=== PATIENT | female | born 1955 ===

== ENCOUNTER 2023-02-01 16:33 | Emergency (ER) | payer SELFPAY ==
[2023-02-01] MEDS ORDERED: Dexamethasone 4 MG/ML SDV IM ONE (16:56)
[2023-02-01] MEDS ORDERED: Orphenadrine 60 MG/2 ML Inj IM ONE (16:56)
== END 2023-02-01 17:39 | disposition home or self-care (01) ==
LOC: DL.ED 16:33
DX: M54.41 Lumbago with sciatica, right side (principal); Z72.0 Tobacco use
CPT/HCPCS: 72100; 96372; 99283; J1100; J2360; 99284

== ENCOUNTER 2025-04-05 05:54 | Day surgery (SDC) | payer BC ==
[2025-04-05] MEDS ORDERED: Dextrose 5%-0.45% NaCl 1,000 ML IV SCH (06:00)
[2025-04-05] MEDS: Lactated Ringers 1,000 ML IV SCH (06:19)
[2025-04-05] MEDS ORDERED: Ondansetron 4 MG/2 ML SDV ONE (07:42)
== END 2025-04-05 09:01 | disposition home or self-care (01) ==
LOC: DL.ENDO 05:54
PROVIDERS: ATTEND Internal Medicine Gastroenterology
DX: K52.9 Noninfective gastroenteritis and colitis, unspecified (principal); K57.30 Diverticulosis of large intestine without perforation or abscess without bleeding
CPT/HCPCS: 43239; J7120; 00731

== ENCOUNTER 2025-04-06 05:18 | Day surgery (SDC) | payer BC ==
[2025-04-06] MEDS ORDERED: Propofol 200 MG/20 ML SDV IV ONE ×2 (05:19)
[2025-04-06] MEDS ORDERED: dexmedeTOMIDine HCl 200 MCG/2 ML SDV IV ONE (05:19)
[2025-04-06] MEDS ORDERED: Ketamine 500 mg/10 ML MDV IV ONE (05:19)
[2025-04-06] MEDS ORDERED: Ondansetron 4 MG/2 ML SDV IV ONE (05:19)
[2025-04-06] MEDS ORDERED: Glycopyrrolate 0.2 MG/ML 2 ML SDV IV ONE (05:19)
[2025-04-06] MEDS ORDERED: Dextrose 5%-0.45% NaCl 1,000 ML IV SCH (05:30)
[2025-04-06] MEDS ORDERED: Propofol 200 MG/20 ML SDV ONE (05:39)
[2025-04-06] MEDS: Lactated Ringers 1,000 ML IV SCH (05:46)
== END 2025-04-06 08:11 | disposition home or self-care (01) ==
LOC: DL.ENDO 05:18
PROVIDERS: ATTEND Internal Medicine Gastroenterology
DX: K52.9 Noninfective gastroenteritis and colitis, unspecified (principal); K57.30 Diverticulosis of large intestine without perforation or abscess without bleeding; R63.4 Abnormal weight loss; F17.210 Nicotine dependence, cigarettes, uncomplicated
CPT/HCPCS: 00811; 45380; J2405; J2704; J3490; J7120